=== PATIENT | female | born 1970 | race Caucasian/White ===

== ENCOUNTER 2016-10-13 20:43 | Emergency (ER) | payer OTHER ==
[2016-10-13 21:36] LABS: BASOPHIL % 0.4 % (0-2); PLATELET COUNT 295 x10^3mcL (130-400); RED CELL DISTRIBUTION WIDTH 12.6 % (11.5-14.5)
[2016-10-13 21:49] LABS: CARBON DIOXIDE 24.6 mmol/L (21-32); CREATININE SERUM 1.2 mg/dL (0.6-1.0)
[2016-10-13 21:55] LABS: ALBUMIN 3.5 g/dL (3.4-5.0); BILIRUBIN TOTAL 0.16 mg/dL (0.20-1.00); TOTAL PROTEIN, SERUM 7.5 g/dL (6.4-8.2)
[2016-10-13 22:19] VITALS: BP 145/79
== END 2016-10-13 22:32 | disposition home or self-care (01) ==
LOC: ED 20:43
PROVIDERS: Emergency Medicine
DX: I10 Essential (primary) hypertension (principal); R11.2 Nausea with vomiting, unspecified; M25.512 Pain in left shoulder; G35 Multiple sclerosis; F12.10 Cannabis abuse, uncomplicated; Z79.899 Other long term (current) drug therapy; Z87.891 Personal history of nicotine dependence

== ENCOUNTER 2017-03-10 14:47 | Inpatient (IN) | payer OTHER ==
[~2017-03-10] VITALS: Ht 162.6 cm; Wt 81.6 kg
[2017-03-10 17:48] LABS: BASOPHIL % 0.8 % (0-2); CARBON DIOXIDE 21.3 mmol/L (21-32); CREATININE SERUM 1.3 mg/dL (0.6-1.0); POTASSIUM SERUM 3.6 mmol/L (3.5-5.1); RED CELL DISTRIBUTION WIDTH 13.9 % (11.5-14.5)
[2017-03-10 17:50] LABS: PLATELET COUNT 443 x10^3mcL (130-400)
[2017-03-10 17:53] LABS: BILIRUBIN TOTAL 0.5 mg/dL (0.20-1.00)
[2017-03-10 17:54] LABS: ALBUMIN 2.6 g/dL (3.4-5.0); TOTAL PROTEIN, SERUM 8.8 g/dL (6.4-8.2)
[2017-03-10 18:02] LABS: UA SPECIFIC GRAVITY 1.015 (1.005-1.035); microscopic required? YES; urine erythrocyte 2+ (NEGATIVE)
[2017-03-10 19:54] LABS: MAGNESIUM 1.9 mg/dL (1.8-2.4); PHOSPHOROUS 3.7 mg/dL (2.5-4.9)
[2017-03-10 20:04] LABS: T3 TOTAL 0.84 ng/mL
[2017-03-10 20:06] LABS: FREE T4 1.05 ng/dL (0.76-1.46); FREE THYROXINE INDEX 2.5 ug/dL (1.4-4.5); T4(THYROXINE) 7.9 ug/dL (4.7-13.3)
[2017-03-10 21:05] VITALS: BP 174/97
[2017-03-10 21:08] VITALS: BP 174/97
[2017-03-10] MEDS ORDERED: DIOVAN160 MG PO (22:41)
[2017-03-10] MEDS ORDERED: CYMBALTA60 M1 PO (22:41)
[2017-03-10] MEDS ORDERED: METHYLPREDNISOLO4 MG PO (23:07)
[2017-03-10] MEDS ORDERED: CARISOPRODOL350 MG PO (23:08)
[2017-03-10] MEDS ORDERED: TIZANIDINE HCL2 MG PO (23:09)
[2017-03-10] MEDS ORDERED: ASPIRIN PO (23:09)
[2017-03-10] MEDS ORDERED: AMBIEN10 MG PO (23:09)
[2017-03-10] MEDS ORDERED: [UNRECOGNIZED DRUG - OTHER] PO (23:09)
[2017-03-10] MEDS ORDERED: APAP/HYDROCODON1 T11 PO (23:10)
[2017-03-10] MEDS ORDERED: SENOKOT-S TABL1 EACH PO (23:10)
[2017-03-10] MEDS ORDERED: BYSTOLIC10 M1 PO (23:11)
[2017-03-11 02:22] LABS: IRON 43 ug/dL (50-170)
[2017-03-11 02:23] LABS: TOTAL IRON BINDING CAPACITY 225 ug/dL (250-450)
[2017-03-11 03:07] LABS: RED BLOOD CELLS 4.06 M/mm3 (4.10-5.10)
[2017-03-11 05:35] LABS: AMPHETAMINE QUAL UR NONE DETECTED (NEG <=1000)
[2017-03-11 06:12] LABS: BASOPHIL % 0.3 % (0-2); RED CELL DISTRIBUTION WIDTH 14.1 % (11.5-14.5)
[2017-03-11 06:17] VITALS: BP 155/71
[2017-03-11 06:23] LABS: CALCIUM 8.6 mg/dL (8.5-10.1); CARBON DIOXIDE 23.7 mmol/L (21-32); CREATININE SERUM 1.1 mg/dL (0.6-1.0); MAGNESIUM 1.8 mg/dL (1.8-2.4); PHOSPHOROUS 3.5 mg/dL (2.5-4.9); POTASSIUM SERUM 3.9 mmol/L (3.5-5.1)
[2017-03-11 06:28] LABS: CHOLESTEROL/HDL RATIO 12.3
[2017-03-11 06:35] LABS: PLATELET COUNT 422 x10^3mcL (130-400)
[2017-03-11 08:50] VITALS: BP 156/72
[2017-03-11 16:42] VITALS: BP 155/70
[2017-03-11 20:45] VITALS: BP 140/65
[2017-03-12 06:15] VITALS: BP 147/71
[2017-03-12 07:12] LABS: BASOPHIL % 0.3 % (0-2); PLATELET COUNT 392 x10^3mcL (130-400)
[2017-03-12 09:09] VITALS: BP 126/62
[2017-03-12] MEDS ORDERED: LEVAQUIN750 MG PO (10:23)
[2017-03-12] MEDS ORDERED: FLO4 PO (10:23)
[2017-03-12] MEDS ORDERED: LAC PO (10:24)
[2017-03-12 13:23] VITALS: BP 126/62
[2017-03-12] MEDS ORDERED: ZOF4 PO (14:06)
== END 2017-03-12 14:49 | disposition home or self-care (01) | DRG 693 ==
LOC: ED 14:47 → DU 18:43
PROVIDERS: Emergency Medicine; ADMIT Family Medicine
DX: N13.2 Hydronephrosis with renal and ureteral calculous obstruction (principal); E43 Unspecified severe protein-calorie malnutrition; N17.0 Acute kidney failure with tubular necrosis; N39.0 Urinary tract infection, site not specified; G35 Multiple sclerosis; E86.0 Dehydration; D64.9 Anemia, unspecified; R80.9 Proteinuria, unspecified; R31.9 Hematuria, unspecified; Z68.30 Body mass index [BMI] 30.0-30.9, adult; R74.0 Nonspecific elevation of levels of transaminase and lactic acid dehydrogenase [LDH]
CPT/HCPCS: 82962; 83880; 84439; J0696; J1956; J2270; J2405; J7030; Q0092